=== PATIENT | male | born 1950 | race Caucasian/White ===

== ENCOUNTER 2021-10-01 17:56 | Emergency (ER) | payer MEDICARE, SELFPAY ==
[2021-10-01 18:33] VITALS: BP 150/82; PULSE 68; RESP 18; TEMP 36.7; O2SAT 99
--- NOTE | 2021-10-01 19:00 | DI.US.S_ITS ---
PROCEDURE: US PERIPH VENOUS LOW EXTREM LT INDICATIONS: LEFT FOOT PAIN. HISTORY OF CLOTTING DISORDER. TECHNIQUE: Real-time imaging, as well as color and pulse Doppler interrogation, were performed of the lower extremity deep veins from the inguinal ligament to the popliteal fossa. COMPARISON: None. FINDINGS: The common femoral, femoral and popliteal veins are normally compressible, and free of intraluminal thrombus. Color and pulse Doppler demonstrate normal phasic intraluminal flow. There is normal augmentation response to distal compression maneuver. IMPRESSION: No evidence of lower extremity DVT. Dictated by: Elsi Garcia M.D. on 10/01/2021 at 19:55 Approved by: Elsi Garcia M.D. on 10/01/2021 at 19:55
--- NOTE | 2021-10-01 20:48 | PC.NURSE ---
Pt worried about wait. US completed and he presumes negative from US tech. Decided to leave without being seen by a provider. Encouraged to f/u as needed and indicated and return for any needs, concerns, worsening of symptoms. [place]/warm/dry. Denies pain, shortness of breath.
== END 2021-10-01 20:51 | disposition left against medical advice (07) ==
PROVIDERS: Emergency Provider Emergency Medicine
DX: Z53.21 Procedure and treatment not carried out due to patient leaving prior to being seen by health care provider (principal)
CPT/HCPCS: 93971; 99283